=== PATIENT | female | born 1940 | race Asian ===

== ENCOUNTER 2019-08-17 15:38 | Inpatient (IN) | payer MEDICARE, MEDICAID ==
[~2019-08-17] VITALS: Ht 152.4 cm; Wt 45.4 kg
[2019-08-17 15:50] VITALS: BP 105/68
--- NOTE | 2019-08-17 15:50 | NUR ---
ED Nurse Note: Patient came to ED from home, sent by Dr. Young d/t pancytopenia and new onset abdominal pain and weakness. Patient also experiencing color change of her tongue the last 4 months. No diarrhea or bloody stools. Patient AxO x 4, no s/s of acute distress. Blood drawn and sent to lab, IV 20 g started in right AC.
[2019-08-17] MEDS ORDERED: Omnipaque-300 100ml vial INJ ONE (16:15)
[2019-08-17] MEDS ORDERED: HYDROCHLOROTH12.5 MG ORAL (16:25)
[2019-08-17] MEDS ORDERED: CLOPIDOGREL75 MG ORAL (16:25)
[2019-08-17] MEDS ORDERED: TRETINOIN10 MG PO (16:25)
[2019-08-17] MEDS ORDERED: SYNTHROID25 MCG ORAL (16:25)
[2019-08-17] MEDS ORDERED: LOSARTAN POTASS50 MG ORAL (16:25)
[2019-08-17] MEDS ORDERED: ISOSORBIDE MONO30 M1 PO (16:25)
[2019-08-17] MEDS ORDERED: VITAMIN D3 COM1 EACH PO (16:25)
--- NOTE | 2019-08-17 16:39 | Emergency Room Report ---
History of Present Illness General Chief Complaint: Generalized Weakness Source: Patient Present Illness HPI Patient is an 79-year-old female who presented after increased generalized weakness. She had recently been seen by her physician was noted to be pancytopenic. She had been having a discoloration of her tongue for the past 3 to 4 months. Previously had some colonoscopy which showed some abnormal looking polyps.Patient had been sent in by Dr. Young. Patient not been vomiting or having any diarrhea. She denies any bloody stools. Allergies: Coded Allergies: No Known Allergies (Unverified , 08/17/19) Patient History Past Medical History: see triage record Reviewed Nursing Documentation: PMH: Agreed; PSxH: Agreed Nursing Documentation-PMH Past Medical History: No History, Except For Hx Cardiac Problems: Yes - anemia, heart surgery Hx Gastrointestinal Problems: No - colonoscopy Review of Systems All Other Systems: negative except mentioned in HPI Physical Exam Vital Signs Date Time Temp Pulse Resp B/P (MAP) Pulse Ox O2 Delivery O2 Flow Rate FiO2 08/17/19 15:42 98.1 78 17 105/68 (80) 98 Room Air Sp02 EP Interpretation: reviewed, normal General Appearance: normal inspection, well appearing, no apparent distress, alert, GCS 15 Head: atraumatic ENT: normal ENT inspection, hearing grossly normal, normal voice Neck: normal inspection, full range of motion, supple, no bony tend Respiratory: normal inspection, lungs clear, normal breath sounds, no respiratory distress, no retraction, no wheezing Cardiovascular #1: regular rate, rhythm, no edema Gastrointestinal: normal inspection, normal bowel sounds, non tender, soft, no guarding, no hernia Genitourinary: no CVA tenderness Musculoskeletal: normal inspection, back normal, normal range of motion Neurologic: alert, motor strength/tone normal, 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 Differential diagnosis included was not limited to anemia, urinary tract infection, electrolyte abnormality, hypothyroidism, myocardial infarction, myasthenia gravis, dehydration, among others. Because of complexity of patient's case laboratory tests and imaging studies were ordered.CT imaging of the chest abdomen pelvis showed no evidence of acute obstruction or appendicitis. See radiology report for full details. Patient's laboratory testing did show some pancytopenia. Patient was discussed with for inpatient management. Dr. Asa Beal was contacted for hematology consult Labs Test 08/17/19 16:37 White Blood Count 3.6 K/UL (4.8-10.8) Red Blood Count 2.79 M/UL (4.20-5.40) Hemoglobin 9.4 G/DL (12.0-16.0) Hematocrit 27.0 % (37.0-47.0) Mean Corpuscular Volume 97 FL (80-99) Mean Corpuscular Hemoglobin 33.7 PG (27.0-31.0) Mean Corpuscular Hemoglobin Concent 34.7 G/DL (32.0-36.0) Red Cell Distribution Width 13.7 % (11.6-14.8) Platelet Count 71 K/UL (150-450) Mean Platelet Volume 12.9 FL (6.5-10.1) Neutrophils (%) (Auto) % (45.0-75.0) Lymphocytes (%) (Auto) % (20.0-45.0) Monocytes (%) (Auto) % (1.0-10.0) Eosinophils (%) (Auto) % (0.0-3.0) Basophils (%) (Auto) % (0.0-2.0) Prothrombin Time 10.8 SEC (9.30-11.50) Prothromb Time International Ratio 1.0 (0.9-1.1) Activated Partial Thromboplast Time 24 SEC (23-33) Sodium Level 139 MMOL/L (136-145) Potassium Level 4.1 MMOL/L (3.5-5.1) Chloride Level 107 MMOL/L (98-107) Carbon Dioxide Level 27 MMOL/L (21-32) Anion Gap 5 mmol/L (5-15) Blood Urea Nitrogen 14 mg/dL (7-18) Creatinine 1.0 MG/DL (0.55-1.30) Estimat Glomerular Filtration Rate mL/min (>60) Glucose Level 79 MG/DL (74-106) Calcium Level 8.9 MG/DL (8.5-10.1) Total Bilirubin 0.4 MG/DL (0.2-1.0) Aspartate Amino Transf (AST/SGOT) 23 U/L (15-37) Alanine Aminotransferase (ALT/SGPT) 22 U/L (12-78) Alkaline Phosphatase 58 U/L (46-116) Troponin I 0.015 ng/mL (0.000-0.056) Total Protein 7.5 G/DL (6.4-8.2) Albumin 3.4 G/DL (3.4-5.0) Globulin 4.1 g/dL Albumin/Globulin Ratio 0.8 (1.0-2.7) Last Vital Signs Date Time Temp Pulse Resp B/P (MAP) Pulse Ox O2 Delivery O2 Flow Rate FiO2 08/17/19 15:42 98.1 78 17 105/68 (80) 98 Room Air Status: improved Disposition: ADMITTED INPATIENT Condition: Stable Giovanni Llamas MD Aug 17, 2019 16:39
[2019-08-17 17:07] LABS: HEMOGLOBIN 9.4 G/DL (12.0-16.0); MEAN CORPUSCULAR VOLUME 97 FL (80-99); PLATELET COUNT 71 K/UL (150-450); RED BLOOD COUNT 2.79 M/UL (4.20-5.40); RED CELL DISTRIBUTION WIDTH 13.7 % (11.6-14.8); WHITE BLOOD COUNT 3.6 K/UL (4.8-10.8)
[2019-08-17 17:24] LABS: ANION GAP 5 mmol/L (5-15); BLOOD UREA NITROGEN 14 mg/dL (7-18); CALCIUM 8.9 MG/DL (8.5-10.1); CARBON DIOXIDE 27 MMOL/L (21-32); CHLORIDE 107 MMOL/L (98-107); POTASSIUM 4.1 MMOL/L (3.5-5.1); SODIUM 139 MMOL/L (136-145)
[2019-08-17 17:30] LABS: ALANINE AMINOTRANSFERASE 22 U/L (12-78); ALBUMIN 3.4 G/DL (3.4-5.0); ALBUMIN/GLOBULIN RATIO 0.8 (1.0-2.7); ALKALINE PHOSPHATASE 58 U/L (46-116); ASPARTATE AMINO TRANSFERASE 23 U/L (15-37); BILIRUBIN,TOTAL 0.4 MG/DL (0.2-1.0)
[2019-08-17 17:45] VITALS: BP 111/74
--- NOTE | 2019-08-17 18:25 | Diagnostic Imaging Report ---
CLINICAL INDICATION:Abdominal pain and weakness, tongue discoloration TECHNIQUE: No oral contrast, per emergency room physician request IV administration nonionic contrast. Spiral acquisitions obtained through the chest, abdomen, and pelvis. Multiplanar reconstructions were generated. Total dose length product image 61 mGycm. CTDIvol(s) 16 mGy. Radiation dose was minimized using automated exposure control COMPARISON: none FINDINGS Chest: The lungs demonstrate posterior dependent atelectatic changes bilaterally. There is a a 4 mm calcified nodule along the minor fissure on the right. There is also an irregular nodule more medially adjacent to the minor fissure. There is some scarring with bronchiectasis in the inferior right upper lobe. Some linear scarring is also seen in the periphery of the right upper lobe. There there are scattered areas of groundglass opacity in the bilateral upper lungs is a calcified small left upper lobe nodule. No definite soft tissue masses. No infiltrates or effusions. The heart is mildly enlarged. No pericardial effusion. The ascending thoracic aorta is ectatic, not quite aneurysmal, measures 3.8 cm in diameter. No mediastinal or hilar mass or adenopathy. There is one or more calcified granulomatous lymph nodes demonstrated. The thyroid is unremarkable. No axillary or chest wall mass or adenopathy. The bones are unremarkable. Abdomen pelvis: There is colonic diverticulosis. No evidence of diverticulitis. The appendix is normal. No small bowel distention. No free or loculated intraperitoneal gas or fluid is evident. The distal esophagus, stomach, duodenum are unremarkable. The gallbladder contains a gallstone. It is nondistended. The liver, bile ducts, pancreas, spleen, adrenals, right kidney are unremarkable. The left kidney demonstrates subcentimeter low-attenuation lesions which are too small to characterize. No retroperitoneal or mesenteric mass or adenopathy. No pelvic mass or adenopathy. There are small bilateral paraovarian varicosities, left greater than right. Otherwise normal uterus and adnexal structures. The bones demonstrate degenerative spondylosis changes. There is a mild superior endplate compression fracture deformity of the L2 vertebral body. IMPRESSION: Bilateral small apical pulmonary parenchymal groundglass opacities. Suspect postinflammatory in nature but focal areas of inflammation also possible. Consider 3 month follow-up CT scanner for further evaluation No acute abnormality otherwise Cardiomegaly Evidence of old granulomatous disease in the lungs, with bilateral calcified nodules. There are also calcified granulomatous mediastinal nodes. There is also a pleural-based nodule lung the minor fissure which presumably represents an area of scarring. Other areas of postinflammatory change, as described Dependent atelectatic changes Colonic diverticulosis. 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 This can be seen in pelvic congestion syndrome. Correlate with clinical findings L2 vertebral body superior endplate compression fracture deformity. Acuity indeterminate. Consider MRI for better characterize if clinically relevant Other findings as noted, including degenerative spondylosis changes, likely small left renal cysts This agrees with the preliminary interpretation provided overnight by [facility] teleradiology service, with minor variations. The CT scanner at [facility] is accredited by the [employer] and the scans are performed using protocols designed to limit radiation exposure to as low as reasonably achievable to attain images of sufficient resolution adequate for diagnostic evaluation.
--- NOTE | 2019-08-17 19:09 | NUR ---
HAND-OFF: Report given to Lexie WILSON.
--- NOTE | 2019-08-17 20:06 | NUR ---
ED Nurse Note: Patient is resting comfortably with family at bedside. Will continue to monitor.
--- NOTE | 2019-08-17 21:10 | NUR ---
ED Nurse Note: Patient resting comfortably, will continue to monitor.
--- NOTE | 2019-08-17 22:05 | NUR ---
ED Nurse Note: Called and rendered report to Elisa RN
--- NOTE | 2019-08-17 22:30 | NUR ---
NURSE NOTES: RECEIVED REPORT FROM KATIE NEVILLE. PATIENT WAS SAFELY TRANSFERRED TO UNIT VIA HOSPITAL BED. BELONGING LIST WAS REVIEWED AND SIGNED WITH PATIENT. PT DECLINED TO SEND MONEY AND OTHER BELONGINGS TO HOSPITAL'S SAFE. KEPT AT BEDSIDE. PATIENT IS AWAKE, AAOX4, ON ROOM AIR, NO ACUTE DISTRESS NOTED. DENIES PAIN AT THE MOMENT. VSS. IV ON LEFT AC IS INTACT AND PATENT. SKIN IS INTACT. CONTACTED . AWAITING FOR ADMISSION ORDERS. BED IS LOCKED AND LOW, BED ALARMS ACTIVE, SIDE RAILS UP X2 AND CALL LIGHT IS WITHIN REACH. WILL CONTINUE TO MONITOR.
--- NOTE | 2019-08-17 23:00 | NUR ---
NURSE NOTES: RECEIVED ADMISSION ORDERS FROM .
[2019-08-18 04:00] VITALS: BP_SYST 135; BP_SYST 138; BP_DIAS 76; BP_DIAS 78
--- NOTE | 2019-08-18 06:00 | NUR ---
NURSE NOTES: PATIENT WAS SEEN BY DR. PEARCE.
--- NOTE | 2019-08-18 06:14 | Consultation ---
History of Present Illness General Chief Complaint: Generalized Weakness Present Illness Allergies: Coded Allergies: No Known Allergies (Unverified , 08/17/19) Medication History Scheduled Clopidogrel* (Clopidogrel*), 75 MG ORAL DAILY, (Reported) Hydrochlorothiazide* (Hydrochlorothiazide*), 12.5 MG ORAL DAILY, (Reported) Levothyroxine Sodium* (Synthroid*), 25 MCG ORAL DAILY, (Reported) Losartan Potassium* (Losartan Potassium*), 50 MG ORAL DAILY, (Reported) Miscellaneous Medications Isosorbide Mononitrate (Isosorbide Mononitrate Er), 30 MG PO, (Reported) Mv-Mn/Iron/Fa/Herbal Cmplx#190 (Vitamin D3 Complete Caplet), 1 EACH PO, ( Reported) Tretinoin (Tretinoin), 10 MG PO, (Reported) Patient History Healthcare decision maker Resuscitation status Full Code Advanced Directive on File Physical Exam Last 24 Hour Vital Signs Date Time Temp Pulse Resp B/P (MAP) Pulse Ox O2 Delivery O2 Flow Rate FiO2 08/18/19 04:00 97.9 66 16 138/76 (96) 98 08/18/19 01:28 Room Air 08/17/19 22:05 98.2 75 18 111/74 98 Room Air 08/17/19 17:45 98.2 75 18 111/74 98 Room Air 08/17/19 15:50 78 17 Room Air 08/17/19 15:50 98.1 78 17 105/68 98 Room Air 08/17/19 15:42 98.1 78 17 105/68 (80) 98 Room Air Intake and Output 08/17/19 08/18/19 19:00 07:00 Intake Total 0 ml Balance 0 ml Intake Oral 0 ml Laboratory Tests Test 08/17/19 16:37 White Blood Count 3.6 K/UL (4.8-10.8) L Red Blood Count 2.79 M/UL (4.20-5.40) L Hemoglobin 9.4 G/DL (12.0-16.0) L Hematocrit 27.0 % (37.0-47.0) L Mean Corpuscular Volume 97 FL (80-99) Mean Corpuscular Hemoglobin 33.7 PG (27.0-31.0) H Mean Corpuscular Hemoglobin Concent 34.7 G/DL (32.0-36.0) Red Cell Distribution Width 13.7 % (11.6-14.8) Platelet Count 71 K/UL (150-450) L Mean Platelet Volume 12.9 FL (6.5-10.1) H Neutrophils (%) (Auto) % (45.0-75.0) Lymphocytes (%) (Auto) % (20.0-45.0) Monocytes (%) (Auto) % (1.0-10.0) Eosinophils (%) (Auto) % (0.0-3.0) Basophils (%) (Auto) % (0.0-2.0) Differential Total Cells Counted 100 Neutrophils % (Manual) 61 % (45-75) Lymphocytes % (Manual) 35 % (20-45) Monocytes % (Manual) 2 % (1-10) Eosinophils % (Manual) 0 % (0-3) Basophils % (Manual) 0 % (0-2) Band Neutrophils 2 % (0-8) Platelet Estimate Decreased L Platelet Morphology Normal Hypochromasia 1+ Anisocytosis 1+ Prothrombin Time 10.8 SEC (9.30-11.50) Prothromb Time International Ratio 1.0 (0.9-1.1) Activated Partial Thromboplast Time 24 SEC (23-33) Sodium Level 139 MMOL/L (136-145) Potassium Level 4.1 MMOL/L (3.5-5.1) Chloride Level 107 MMOL/L (98-107) Carbon Dioxide Level 27 MMOL/L (21-32) Anion Gap 5 mmol/L (5-15) Blood Urea Nitrogen 14 mg/dL (7-18) Creatinine 1.0 MG/DL (0.55-1.30) Estimat Glomerular Filtration Rate mL/min (>60) Glucose Level 79 MG/DL (74-106) Calcium Level 8.9 MG/DL (8.5-10.1) Total Bilirubin 0.4 MG/DL (0.2-1.0) Aspartate Amino Transf (AST/SGOT) 23 U/L (15-37) Alanine Aminotransferase (ALT/SGPT) 22 U/L (12-78) Alkaline Phosphatase 58 U/L (46-116) Troponin I 0.015 ng/mL (0.000-0.056) Total Protein 7.5 G/DL (6.4-8.2) Albumin 3.4 G/DL (3.4-5.0) Globulin 4.1 g/dL Albumin/Globulin Ratio 0.8 (1.0-2.7) L Height (Feet): 5 Height (Inches): 0.00 Weight (Pounds): 100 Assessment/Plan Assessment/Plan: Hematology Consultation REQ MD: Ryley Sherman Chief Complaint: Generalized Weakness RFC: PAncytopenia DOS: 08/18/2019 HPI Patient is an 79-year-old female who presented after increased generalized weakness -- was at the clinic yesterday and sent in for admission. She had been having a discoloration of her tongue for the past 3 to 4 months. Previously had some colonoscopy which showed some abnormal looking polyps. Patient not been vomiting or having any diarrhea. She denies any bloody stools. Has recently been seen in the clinic again, recent pancytopenia, has never had a bone marrow biopsy. CT C/A/P was nonspecific, has been reviewed, no masses noted. Spoke with patient with a Faroese [employer] Machine Operator, she is Faroese speaking only. Coded Allergies: No Known Allergies (Unverified , 08/17/19) Patient History Past Medical History: see triage record Reviewed Nursing Documentation: PMH: Agreed; PSxH: Agreed Nursing Documentation-PMH Past Medical History: No History, Except For Hx Cardiac Problems: Yes - anemia, heart surgery Hx Gastrointestinal Problems: No - colonoscopy Review of Systems All Other Systems: negative except mentioned in HPI Physical Exam Vitals: reviewed General: no apparent distress, alert, GCS 15 Head: atraumatic HEENT: normal inspection, full range of motion, supple, no bony tend Resp: normal inspection, lungs clear, normal breath sounds Cardiovascular: regular rate, rhythm, no edema GI: normal inspection, normal bowel sounds, non tender, soft, no guarding, no hernia : no CVA tenderness Psych: normal inspection, judgement/insight normal, mood/affect normal Labs: reviewed Imaging: noted Assessment and Recs: # Pancytopenia -- cause yet unknow, no recent administered chemotherapy, will review labs from before, though this is first time she has been here --> cea, hep and hiv ordered to rule out common causes --> meds have been noted --> smear is reviewed and are negative --> CT imaging of the chest abdomen pelvis showed no evidence of acute obstruction or appendicitis. 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 # ASVD. # Cholelithiasis without findings to suggest acute cholecystitis. 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 HELEN Rn and appreciate consultation. Asa Young MD Aug 18, 2019 06:14
--- NOTE | 2019-08-18 07:34 | NUR ---
HAND-OFF: Report given to Jocelyne Santos RN. Patient is in stable condition. Endorsed plan of care.
--- NOTE | 2019-08-18 07:43 | NUR ---
NURSE NOTES: Nurse report given by Elisa, RN. Patient's awake and sitting upright at bedside, eyes open spontaneously. AO x 3, sami speaking only, denies pain , no s/s of distress or SOB. IV saline locked, patent and asymptomatic. Bed low and locked, call light within reach, side rails x 2, bed alarm is armed. Will continue to monitor.
[2019-08-18 08:00] VITALS: BP 148/76
--- NOTE | 2019-08-18 08:51 | NUR ---
NURSE NOTES: Medications were found in patient's belonging bag and witnessed patient was trying to take medications from her medicine bag. Nurse stopped patient and explained that she needs us to dispense the medications for her to take, we don't want to over medicate her on top of whatever she's been taking. Nurse gave pharmacist the medication, receipt is in the chart.
[2019-08-18] MEDS ORDERED: LORazepam Inj 2mg/ml 1ml IV SCH (09:00)
[2019-08-18] MEDS ORDERED: Morphine Sulfate 2mg/ml Inj(IV/IM USE ONLY) IVP SCH (09:00)
[2019-08-18] MEDS ORDERED: Lidocaine 2% MPF 5ml Vial INJ SCH (10:00)
--- NOTE | 2019-08-18 10:40 | NUR ---
NURSE NOTES: Patient received Bone marrow aspirate procedure by Dr. Chavis Patient signed consent. Patient laid on prone position. No complication happened. Minimal bleed. Patient tolerated well. Educated patient to lay on her back for at least 30 minutes. Will continue to monitor.
--- NOTE | 2019-08-18 11:10 | PATHOLOGY BONE BARROW ---
Bone Marrow Aspirate & Biopsy . PROCEDURE: Bone Marrow Aspirate and Biopsy INDICATION: Pancytopenia PROCEDURE CREDIT RISK REVIEW OFFICER: Gala Pineda M.D. CONSENT: Consent was previously obtained from the patient. The risks and benefits were re-explained. The patient agreed to undergo the procedure. A TIMEOUT WAS EXECUTED: Yes PROCEDURE SUMMARY: The patient was laid in the prone position. The left posterior iliac crest was prepped and draped in a sterile fashion. The crest of the posterior iliac was located, and the skin as well as surface of the bone was anesthetized with 2% lidocaine. An aspirating needle was introduced, the bone marrow aspirate was obtained without any difficulty. This was withdrawn the coring needle was advanced into the bone cavity. A bone marrow biopsy was obtained without any complications. ESTIMATED BLOOD LOSS: Negligible REPORTS TO FOLLOW Gala Pineda Aug 18, 2019 11:10
[2019-08-18 12:00] VITALS: BP 148/80
--- NOTE | 2019-08-18 13:13 | NUR ---
CASE MANAGEMENT:INITIAL REVIEW 79 YR OLD FEMALE FROM HOME CC;GENERALIZED WEAKNESS SI;PANCYTOPENIA 98.2 78 16 105/68 98% ON RA WBC 3.6 RBC 2.79 PLT-71 H/H 9.4/27.0 IS;CHEST/ABD/PELVIS CT - Evidence of old granulomatous disease in the lungs, with bilateral calcified nodules. There are also calcified granulomatous mediastinal nodes. There is also a pleural-based nodule lung the minor fissure which presumably represents an area of scarring. ADMITTED TO MED SURG MED SURG STATUS DCP;FROM HOME
[2019-08-18 16:00] VITALS: BP 140/72
--- NOTE | 2019-08-18 16:15 | NUR ---
NURSE NOTES: Patient complains of midchest pain, 6/, no radiation, sharp pain. Contacted Dr. Young regarding the situation. MD ordered EKG stat and [place] 5/325 PO 16hr PRN. Order acknowledged and carried out.
[2019-08-18] MEDS ORDERED: HYDROcodone/Acetamin 5/325 tab ORAL PRN (16:45)
--- NOTE | 2019-08-18 19:28 | NUR ---
HAND-OFF: Report given to Elisa, RN. Plan of care endorsed. Patient's stable.
--- NOTE | 2019-08-18 19:30 | NUR ---
NURSE NOTES: RECEIVED PT FROM ERNESTO BATRES RN. PT IS AWAKE, AAOX4, ON ROOM AIR, NO ACUTE DISTRESS NOTED. IV ON LEFT AC INTACT AND PATENT. REMINDED PATIENT ON STOOL COLLECTION FOR STOOL OB. PATIENT VERBALIZED UNDERSTANDING. BED IS LOCKED AND LOW, BED ALARMS ACTIVE, SIDE RAILS UPX2 AND CALL LIGHT IS WITHIN REACH. WILL CONTINUE TO MONITOR.
[2019-08-18 20:00] VITALS: BP 102/59
--- NOTE | 2019-08-18 20:00 | Consultation ---
DATE OF CONSULTATION: 08/18/2019 INFECTIOUS DISEASES CONSULTATION CONSULTING PHYSICIAN: Chapincito Li M.D. PRIMARY ATTENDING PHYSICIAN: Ryley Fritz M.D. REASON FOR CONSULTATION: Pancytopenia. HISTORY OF PRESENT ILLNESS: The patient is an 79-year-old Turk[place] female admitted yesterday after was sent by primary doctor because of weakness and pancytopenia. No fever. No other systemic problems. She also has pigmentation on tongue and lips. PAST MEDICAL HISTORY: Coronary artery disease, hypothyroidism, history of chronic Lilly, history of liver damage because of [place] herbal medicine, after that the patient had pigmentation to tongue that never resolved. ALLERGIES: No known drug allergies. MEDICATIONS: at home get blood pressure medication. Currently medication was on hold for bone marrow biopsy. SOCIAL HISTORY: Originally from [place], . No history of alcohol, drug abuse, or smoking. REVIEW OF SYSTEMS: No fever. No chills. No coughing. Have shortness of breath on exertion, especially getting up the stairs. No nausea. No vomiting. No problem passing urine. PHYSICAL EXAMINATION: VITAL SIGNS: Temperature 98.1, pulse 71, blood pressure 148/80. GENERAL APPEARANCE: No acute distress. HEAD AND NECK: [place] conjunctiva, has pigmentation of lips and tongue. HEART: Normal rate. LUNGS: Clear. ABDOMEN: Soft and nontender. EXTREMITIES: No edema. NEUROLOGIC: Awake, alert, oriented. She is hard of hearing. LABORATORY AND DIAGNOSTIC DATA: WBC 3.6, hemoglobin 9.4, hematocrit 27, platelets 71. Sodium 139, potassium 4.1, chloride 104, bicarbonate 27, BUN 14, creatinine 1. Troponin is normal. HIV test was negative. CT scan of the abdomen and pelvis showed L2 compression fracture, colon diverticulosis without diverticulitis, small atypical pulmonary parenchymal ground glass appearance. IMPRESSION: 1. Pancytopenia. 2. Tongue pigmentation likely post inflammatory. 3. Colonic diverticulosis without diverticulitis. 4. Hypothyroidism. 5. L2 compression fracture. RECOMMENDATION: Observe off antibiotic. We will follow up hepatitis profile and bone marrow biopsy report. At the end of my exam, I thank Dr. Fritz, for involving me in the care of this patient. Chapincito Li M.D. DR: Naun JOB#: [id number] CC: PHI
[2019-08-19] VITALS (7 sets, daily range): BP systolic 90–129; BP diastolic 51–80
--- NOTE | 2019-08-19 02:00 | Consultation ---
DATE OF CONSULTATION: 08/18/2019 GASTROENTEROLOGY CONSULTATION CONSULTING PHYSICIAN: Live Varghese M.D. CHIEF COMPLAINT: I was asked to see this patient by Dr. Ryley Fritz for evaluation of oral pigmentation and history of colonic polyps. HISTORY OF PRESENT ILLNESS: The patient is an 79-year-old Japanese-speaking woman who was brought into the hospital due to fatigue and weakness. 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 However, given the fatigue, she was brought in to the hospital where inpatient evaluation and treatment has been performed. The patient was noted to have some mild pigmentation, which led to this consultation. She states she has had this discoloration for the last five years. She has not seen a flight crew scheduler or specialist for this. However, about a year ago, she had a colonoscopy and they found four polyps, and one of these was removed showing some suspicious tissue. Subsequently, a few months later, a second colonoscopy was done, and the other three were removed. The first colonoscopy was in October and the second one was a few months later. She also had an endoscopy during the October colonoscopy. She cannot recall any cancers in her life except for some suspicion tissue found on tip of one of the polyps as described above. PAST MEDICAL HISTORY: History of gallstones, history of high blood pressure, thyroid disorder, chest pain disorder. FAMILY HISTORY: Noncontributory. SOCIAL HISTORY: The patient is Japanese-speaking. She does not smoke or drink any alcohol. MEDICATIONS: The patient takes some medications for her thyroid. She is on Isordil. She is on Plavix. REVIEW OF SYSTEMS: Otherwise negative. ALLERGIES: None. PHYSICAL EXAMINATION: GENERAL: A pleasant thin Japanese woman, seen in her room with female nurse at bedside. HEENT: Normocephalic and atraumatic. There is the melanotic pigmentation of the buccal mucosa both behind upper and lower lips as well as the cheeks and also on the tongue. NECK: Supple. CHEST: Clear to auscultation. CARDIOVASCULAR: Regular rate. ABDOMEN: Soft. Good bowel sounds. There is no tenderness. EXTREMITIES: No edema. LABORATORY DATA: Laboratory data were noted. ASSESSMENT: This patient presents with weakness and pancytopenia, which is being addressed separately by her cover machine operator. 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 However, this patient is 79 years old and the lesions just appear now, which is unusual. Also, it would be unlikely to be without cancer for 79 years with this type of syndrome and not already had a juan malignancy. Finally, the lesions in her mouth are somewhat more prominent and typically seen in this disorder. I would refer her either to Ear, Nose, and Throat consultation or Dermatology regarding the skin findings in the mouth. In the meantime, CEA has been ordered, and I will check the patient's stool for occult blood. Respect to the colonoscopy interval screening, I would defer the next colonoscopy to her previous doctors to perform the last one. RECOMMENDATIONS: 1. Consider Ear, Nose, and Throat or Dermatology consultation regarding the oral lesions. 2. We will await CEA results. 3. Hematology followup. 4. Check stool occult blood. Thank you for asking me to participate in the care of this patient. Live Varghese M.D. DR: JERMAINE JOB#: [id number] CC: PHI
[2019-08-19 05:47] LABS: HEMATOCRIT 28.7 % (37.0-47.0); MEAN CORPUSCULAR VOLUME 97 FL (80-99); PLATELET COUNT 58 K/UL (150-450); RED BLOOD COUNT 2.96 M/UL (4.20-5.40); RED CELL DISTRIBUTION WIDTH 13.6 % (11.6-14.8); WHITE BLOOD COUNT 4.7 K/UL (4.8-10.8)
[2019-08-19] MEDS: Levothyroxine 25mcg tab ORAL SCH (05:47)
[2019-08-19 06:43] LABS: ALANINE AMINOTRANSFERASE 19 U/L (12-78); ALBUMIN 3.3 G/DL (3.4-5.0); ALBUMIN/GLOBULIN RATIO 0.8 (1.0-2.7); ALKALINE PHOSPHATASE 61 U/L (46-116); ANION GAP 9 mmol/L (5-15); ASPARTATE AMINO TRANSFERASE 22 U/L (15-37); BILIRUBIN,TOTAL 0.4 MG/DL (0.2-1.0); BLOOD UREA NITROGEN 16 mg/dL (7-18); CALCIUM 8.8 MG/DL (8.5-10.1); CARBON DIOXIDE 26 MMOL/L (21-32); CHLORIDE 105 MMOL/L (98-107); CREATININE 0.9 MG/DL (0.55-1.30); POTASSIUM 4.1 MMOL/L (3.5-5.1); SODIUM 140 MMOL/L (136-145)
--- NOTE | 2019-08-19 07:25 | NUR ---
HAND-OFF: Report given to KATIE Morales. Patient in stable condition. Endorsed plan of care.
--- NOTE | 2019-08-19 07:35 | NUR ---
NURSE NOTES: pt in bed with no sob nor in any form of distress noted. Able to verbalize needs in welsh. denies any pain. no bleeding noted on lower back. will continue to monitor
[2019-08-19] MEDS: Losartan 50mg tab ORAL SCH (08:06)
[2019-08-19] MEDS: hydroCHLOROthiazide 12.5mg TAB ORAL SCH (08:07)
[2019-08-19] MEDS: Imdur 30mg tab ORAL SCH (08:07)
--- NOTE | 2019-08-19 11:31 | History and Physical Report ---
DATE OF ADMISSION: 08/17/2019 HISTORY OF PRESENT ILLNESS: Basically, the patient came in and is admitted for pancytopenia. Came in with weakness. The patient also has been complaining of very much weak with right flank pain and also admitted for pancytopenia. The patient has a history of GI cancer. The patient is also going to get a bone marrow biopsy and CTs. We will go over the results of the CT with the radiologist. The patient basically complains of also discoloration of her tongue for the past three to four months. The patient also has some abnormal looking polyps. The patient denies any rectal bleeding. Denies nausea, vomiting, or diarrhea. Denies shortness of breath. Denies cough. Feels very weak. PAST MEDICAL HISTORY: History of GI cancer, anemia, history of polyps, CAD, hypertension, and hypothyroidism. PAST SURGICAL HISTORY: Heart surgery. ALLERGIES: No known allergies. MEDICATIONS: Hydrochlorothiazide, isosorbide mononitrate, Levoxyl, and losartan. FAMILY HISTORY: Noncontributory. SOCIAL HISTORY: Denies history alcohol or illicit drugs. Denies history of smoking. REVIEW OF SYSTEMS: HEENT: Denies headaches. Denies shortness of breath. Denies cough. CARDIOVASCULAR: Denies chest pain. Denies nausea, vomiting, or diarrhea. GASTROINTESTINAL: Denies nausea, vomiting, diarrhea. EXTREMITIES: . CENTRAL NERVOUS SYSTEM: Denies change in speech pattern. Has generalized weakness. PHYSICAL EXAMINATION: VITAL SIGNS: Temperature 98.2, pulse is 75, and blood pressure is 111/74. HEENT: PERRLA. NECK: Supple. No lymphadenopathy. CHEST: Clear to auscultation. CARDIOVASCULAR: She does have heart murmur, which is chronic. GASTROINTESTINAL: Soft. Positive bowel sounds. No organomegaly. EXTREMITIES: No edema. The patient also has generalized weakness. LABORATORY DATA: WBC of 3.6, hemoglobin 9.4, and platelets of 71,000. Sodium 139, potassium 4.1, BUN of 14, creatinine 1, and glucose of 79. ASSESSMENT AND PLAN: Right flank pain. The patient does have right-sided pancytopenia. The patient has been getting bone marrow biopsy and also we have consulted Dr. Asa Young, Dr. Varghese, and Dr. Chapincito Li to rule out as well as for colonic polyps and rule out any colon mass. is consulted for the GI cancer as well as who has ordered bone marrow biopsy. Ryley Fritz M.D. DR: BRIGID JOB#: [id number] CC:
--- NOTE | 2019-08-19 13:28 | NUR ---
CASE MANAGEMENT:REVIEW SI;PANCYTOPENIA. S/P BONE MARROW ASPIRATION 98.0 75 16 100/53 96% ON RA WBC 4.I RBC 2.96 PLT 58 H/H 05/18.7 IS;IMDUR PO QD COZAAR PO QD SYNTHROID PO QD MED SURG STATUS DCP;FROM HOME
--- NOTE | 2019-08-19 14:45 | Hematology/Onc Progress Note ---
Assessment/Plan Assessment/Plan Assessment and Recs: # Pancytopenia -- cause yet unknow, no recent administered chemotherapy, will review labs from before, though this is first time she has been here --> hep and hiv both negative, cea pending --> meds have been noted --> smear is reviewed and are negative --> CT imaging of the chest abdomen pelvis showed no evidence of acute obstruction or appendicitis. --> 08/19 flow cytometry negative --> bone marrow biopsy 08/18/19 results reviewed/pending # Anemia of chronic disease --> has been snf, chronic --> no e/o hemolysis is seen --> hgb goal >7 # Right flank pain --> r/o uti, on abx as needed # Advanced coronary artery calcifications. # ASVD. # Cholelithiasis without findings to suggest acute cholecystitis. 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 HELEN Rn and appreciate consultation. Subjective Allergies: Coded Allergies: No Known Allergies (Unverified , 08/17/19) Subjective 08/19: awake, no acute distress, flow cytometry negative, hep/hiv negative, no sob Objective Objective Current Medications Medications (Trade) Dose Ordered Sig/Verna Route PRN Reason Start Time Stop Time Status Last Admin Dose Admin Acetaminophen/ Hydrocodone Bitart ([place] 5/325) 1 tab Q6H PRN ORAL For Pain 08/18/19 16:45 08/25/19 16:44 08/18/19 16:52 Clopidogrel Bisulfate (Plavix) 75 mg DAILY ORAL 08/19/19 09:00 09/18/19 08:59 Hydrochlorothiazide (Hydrodiuril) 12.5 mg DAILY ORAL 08/19/19 09:00 09/18/19 08:59 08/19/19 08:07 Isosorbide Mononitrate (Imdur) 30 mg DAILY ORAL 08/19/19 09:00 09/18/19 08:59 08/19/19 08:07 Levothyroxine Sodium (Synthroid) 25 mcg ACBREAKFAST ORAL 08/19/19 06:30 09/18/19 06:29 08/19/19 05:47 Losartan Potassium (Cozaar) 50 mg DAILY ORAL 08/19/19 09:00 09/18/19 08:59 08/19/19 08:06 Last 24 Hour Vital Signs Date Time Temp Pulse Resp B/P (MAP) Pulse Ox O2 Delivery O2 Flow Rate FiO2 08/19/19 12:00 98.0 71 18 100/53 (69) 98 08/19/19 09:00 Room Air 08/19/19 08:07 124/69 08/19/19 08:06 124/69 08/19/19 08:00 97.8 75 18 124/69 (87) 96 08/19/19 04:00 97.7 70 16 129/67 (87) 97 08/19/19 00:00 97.7 77 16 114/67 (83) 98 08/18/19 21:00 Room Air 08/18/19 20:00 97.6 71 16 102/59 (73) 97 08/18/19 17:22 98.1 08/18/19 16:00 98.4 78 17 140/72 (94) 99 08/18/19 12:00 98.1 71 18 148/80 (102) 98 08/18/19 11:09 98.2 08/18/19 08:00 Room Air 08/18/19 08:00 98.2 76 17 148/76 (100) 99 08/18/19 04:00 97.9 66 16 138/76 (96) 98 08/18/19 01:28 Room Air 08/17/19 22:05 98.2 75 18 111/74 98 Room Air 08/17/19 17:45 98.2 75 18 111/74 98 Room Air 08/17/19 15:50 78 17 Room Air 08/17/19 15:50 98.1 78 17 105/68 98 Room Air 08/17/19 15:42 98.1 78 17 105/68 (80) 98 Room Air Intake and Output 08/18/19 08/19/19 19:00 07:00 Intake Total 250 ml Balance 250 ml Intake Oral 250 ml # Voids 3 2 # Bowel Movements 1 Labs Test 08/17/19 16:37 08/18/19 08:30 08/19/19 05:12 White Blood Count 3.6 K/UL (4.8-10.8) 4.7 K/UL (4.8-10.8) Red Blood Count 2.79 M/UL (4.20-5.40) 2.96 M/UL (4.20-5.40) Hemoglobin 9.4 G/DL (12.0-16.0) 10.0 G/DL (12.0-16.0) Hematocrit 27.0 % (37.0-47.0) 28.7 % (37.0-47.0) Mean Corpuscular Volume 97 FL (80-99) 97 FL (80-99) Mean Corpuscular Hemoglobin 33.7 PG (27.0-31.0) 33.7 PG (27.0-31.0) Mean Corpuscular Hemoglobin Concent 34.7 G/DL (32.0-36.0) 34.6 G/DL (32.0-36.0) Red Cell Distribution Width 13.7 % (11.6-14.8) 13.6 % (11.6-14.8) Platelet Count 71 K/UL (150-450) 58 K/UL (150-450) Mean Platelet Volume 12.9 FL (6.5-10.1) 8.5 FL (6.5-10.1) Neutrophils (%) (Auto) % (45.0-75.0) % (45.0-75.0) Lymphocytes (%) (Auto) % (20.0-45.0) % (20.0-45.0) Monocytes (%) (Auto) % (1.0-10.0) % (1.0-10.0) Eosinophils (%) (Auto) % (0.0-3.0) % (0.0-3.0) Basophils (%) (Auto) % (0.0-2.0) % (0.0-2.0) Differential Total Cells Counted 100 100 Neutrophils % (Manual) 61 % (45-75) 69 % (45-75) Lymphocytes % (Manual) 35 % (20-45) 28 % (20-45) Monocytes % (Manual) 2 % (1-10) 3 % (1-10) Eosinophils % (Manual) 0 % (0-3) 0 % (0-3) Basophils % (Manual) 0 % (0-2) 0 % (0-2) Band Neutrophils 2 % (0-8) 0 % (0-8) Platelet Estimate Decreased Decreased Platelet Morphology Normal Normal Hypochromasia 1+ 1+ Anisocytosis 1+ 1+ Prothrombin Time 10.8 SEC (9.30-11.50) Prothromb Time International Ratio 1.0 (0.9-1.1) Activated Partial Thromboplast Time 24 SEC (23-33) Sodium Level 139 MMOL/L (136-145) 140 MMOL/L (136-145) Potassium Level 4.1 MMOL/L (3.5-5.1) 4.1 MMOL/L (3.5-5.1) Chloride Level 107 MMOL/L (98-107) 105 MMOL/L (98-107) Carbon Dioxide Level 27 MMOL/L (21-32) 26 MMOL/L (21-32) Anion Gap 5 mmol/L (5-15) 9 mmol/L (5-15) Blood Urea Nitrogen 14 mg/dL (7-18) 16 mg/dL (7-18) Creatinine 1.0 MG/DL (0.55-1.30) 0.9 MG/DL (0.55-1.30) Estimat Glomerular Filtration Rate mL/min (>60) mL/min (>60) Glucose Level 79 MG/DL (74-106) 97 MG/DL (74-106) Calcium Level 8.9 MG/DL (8.5-10.1) 8.8 MG/DL (8.5-10.1) Total Bilirubin 0.4 MG/DL (0.2-1.0) 0.4 MG/DL (0.2-1.0) Aspartate Amino Transf (AST/SGOT) 23 U/L (15-37) 22 U/L (15-37) Alanine Aminotransferase (ALT/SGPT) 22 U/L (12-78) 19 U/L (12-78) Alkaline Phosphatase 58 U/L (46-116) 61 U/L (46-116) Troponin I 0.015 ng/mL (0.000-0.056) Total Protein 7.5 G/DL (6.4-8.2) 7.5 G/DL (6.4-8.2) Albumin 3.4 G/DL (3.4-5.0) 3.3 G/DL (3.4-5.0) Globulin 4.1 g/dL 4.2 g/dL Albumin/Globulin Ratio 0.8 (1.0-2.7) 0.8 (1.0-2.7) Carcinoembryonic Antigen 2.3 ng/mL (0.0-4.7) Hepatitis A IgM Antibody Negative (Negative) Hepatitis B Surface Antigen Negative (Negative) Hepatitis B Core IgM Antibody Negative (Negative) Hepatitis C Antibody <0.1 s/co ratio HIV (1&2) Antibody Rapid Negative (NEGATIVE) Ovalocytes Occasional Height (Feet): 5 Height (Inches): 0.00 Weight (Pounds): 100 Objective Physical Exam Vitals: reviewed General: no apparent distress, alert, GCS 15 Head: atraumatic HEENT: normal inspection, full range of motion, supple, no bony tend Resp: normal inspection, lungs clear, normal breath sounds Cardiovascular: regular rate, rhythm, no edema GI: normal inspection, normal bowel sounds, non tender, soft, no guarding, no hernia : no CVA tenderness Psych: normal inspection, judgement/insight normal, mood/affect normal Asa Young MD Aug 19, 2019 14:45
--- NOTE | 2019-08-19 15:15 | NUR ---
NURSE NOTES: OB stool collected and sent to the lab
--- NOTE | 2019-08-19 19:16 | NUR ---
HAND-OFF: Report given to KATIE Branch.
--- NOTE | 2019-08-19 19:38 | NUR ---
NURSE NOTES: Patient is in bed and asleep at this time. On room air with no signs of distress or SOB. IV intact and patent. Bed locked and in lowest position. Call light in reach. Will continue to monitor.
--- NOTE | 2019-08-19 19:42 | General Progress Note ---
Assessment/Plan Assessment/Plan: Assessment - Pancytopenia - blue discoloration in mouth - h/o colon polyps Recommendations - push po - Heme Onc f/u - follow labs - consider ENT eval Subjective Allergies: Coded Allergies: No Known Allergies (Unverified , 08/17/19) Subjective Above noted d/w patient via career resource specialist had c/o CP earlier - evaluated by PMD no abd complaints Objective Last 24 Hour Vital Signs Date Time Temp Pulse Resp B/P (MAP) Pulse Ox O2 Delivery O2 Flow Rate FiO2 08/19/19 16:00 98.4 72 18 90/51 (64) 98 08/19/19 12:00 98.0 71 18 100/53 (69) 98 08/19/19 09:00 Room Air 08/19/19 08:07 124/69 08/19/19 08:06 124/69 08/19/19 08:00 97.8 75 18 124/69 (87) 96 08/19/19 04:00 97.7 70 16 129/67 (87) 97 08/19/19 00:00 97.7 77 16 114/67 (83) 98 08/18/19 21:00 Room Air 08/18/19 20:00 97.6 71 16 102/59 (73) 97 Intake and Output 08/18/19 08/19/19 19:00 07:00 Intake Total 250 ml Balance 250 ml Intake Oral 250 ml # Voids 3 2 # Bowel Movements 1 Laboratory Tests 08/19/19 05:12: White Blood Count 4.7L, Red Blood Count 2.96L, Hemoglobin 10.0L, Hematocrit 28.7L, Mean Corpuscular Volume 97, Mean Corpuscular Hemoglobin 33.7H, Mean Corpuscular Hemoglobin Concent 34.6, Red Cell Distribution Width 13.6, Platelet Count 58L, Mean Platelet Volume 8.5, Neutrophils (%) (Auto) , Lymphocytes (%) ( Auto) , Monocytes (%) (Auto) , Eosinophils (%) (Auto) , Basophils (%) (Auto) , Differential Total Cells Counted 100, Neutrophils % (Manual) 69, Lymphocytes % ( Manual) 28, Monocytes % (Manual) 3, Eosinophils % (Manual) 0, Basophils % ( Manual) 0, Band Neutrophils 0, Platelet Estimate DecreasedL, Platelet Morphology Normal, Hypochromasia 1+, Anisocytosis 1+, Ovalocytes Occasional, Sodium Level 140, Potassium Level 4.1, Chloride Level 105, Carbon Dioxide Level 26, Anion Gap 9, Blood Urea Nitrogen 16, Creatinine 0.9, Estimat Glomerular Filtration Rate , Glucose Level 97, Calcium Level 8.8, Total Bilirubin 0.4, Aspartate Amino Transf (AST/SGOT) 22, Alanine Aminotransferase (ALT/SGPT) 19, Alkaline Phosphatase 61, Total Protein 7.5, Albumin 3.3L, Globulin 4.2, Albumin/ Globulin Ratio 0.8L 08/19/19 17:00: Stool Occult Blood [Pending] Height (Feet): 5 Height (Inches): 0.00 Weight (Pounds): 100 Objective WDWN NCAT, (+) blue patches on buccal and tongue mucosa supple CTA RR abd soft NT ND no edema Live Varghese MD Aug 19, 2019 19:42
--- NOTE | 2019-08-19 21:22 | General Progress Note ---
Assessment/Plan Problem List: (1) Pancytopenia ICD Codes: D61.818 - Other pancytopenia SNOMED: [id number] Status: progressing Assessment/Plan: pancytopenia consulted heme/onc afebrile reviewed chart and labs Subjective ROS Limited/Unobtainable: Yes Allergies: Coded Allergies: No Known Allergies (Unverified , 08/17/19) Objective Last 24 Hour Vital Signs Date Time Temp Pulse Resp B/P (MAP) Pulse Ox O2 Delivery O2 Flow Rate FiO2 08/19/19 20:07 Room Air 08/19/19 20:00 98.1 70 18 92/51 (65) 98 08/19/19 16:00 98.4 72 18 90/51 (64) 98 08/19/19 12:00 98.0 71 18 100/53 (69) 98 08/19/19 09:00 Room Air 08/19/19 08:07 124/69 08/19/19 08:06 124/69 08/19/19 08:00 97.8 75 18 124/69 (87) 96 08/19/19 04:00 97.7 70 16 129/67 (87) 97 08/19/19 00:00 97.7 77 16 114/67 (83) 98 Intake and Output 08/18/19 08/19/19 19:00 07:00 Intake Total 250 ml Balance 250 ml Intake Oral 250 ml # Voids 3 2 # Bowel Movements 1 Laboratory Tests 08/19/19 05:12: White Blood Count 4.7L, Red Blood Count 2.96L, Hemoglobin 10.0L, Hematocrit 28.7L, Mean Corpuscular Volume 97, Mean Corpuscular Hemoglobin 33.7H, Mean Corpuscular Hemoglobin Concent 34.6, Red Cell Distribution Width 13.6, Platelet Count 58L, Mean Platelet Volume 8.5, Neutrophils (%) (Auto) , Lymphocytes (%) ( Auto) , Monocytes (%) (Auto) , Eosinophils (%) (Auto) , Basophils (%) (Auto) , Differential Total Cells Counted 100, Neutrophils % (Manual) 69, Lymphocytes % ( Manual) 28, Monocytes % (Manual) 3, Eosinophils % (Manual) 0, Basophils % ( Manual) 0, Band Neutrophils 0, Platelet Estimate DecreasedL, Platelet Morphology Normal, Hypochromasia 1+, Anisocytosis 1+, Ovalocytes Occasional, Sodium Level 140, Potassium Level 4.1, Chloride Level 105, Carbon Dioxide Level 26, Anion Gap 9, Blood Urea Nitrogen 16, Creatinine 0.9, Estimat Glomerular Filtration Rate , Glucose Level 97, Calcium Level 8.8, Total Bilirubin 0.4, Aspartate Amino Transf (AST/SGOT) 22, Alanine Aminotransferase (ALT/SGPT) 19, Alkaline Phosphatase 61, Total Protein 7.5, Albumin 3.3L, Globulin 4.2, Albumin/ Globulin Ratio 0.8L 08/19/19 17:00: Stool Occult Blood [Pending] Height (Feet): 5 Height (Inches): 0.00 Weight (Pounds): 100 Cardiovascular: normal rate Respiratory/Chest: lungs clear Abdomen: non tender Ryley Fritz MD Aug 19, 2019 21:22
[2019-08-20 04:00] VITALS: BP 137/76
[2019-08-20] MEDS: Levothyroxine 25mcg tab ORAL SCH (06:31)
--- NOTE | 2019-08-20 07:20 | NUR ---
HAND-OFF: Report given to KATIE Morales.
--- NOTE | 2019-08-20 07:55 | NUR ---
NURSE NOTES: pt in bed with no sob nor in any form of distress noted. Breathing regular and unlabored. denies pain at this time. will continue to monitor
[2019-08-20 08:00] VITALS: BP 151/78
[2019-08-20] MEDS: Losartan 50mg tab ORAL SCH (08:22)
[2019-08-20] MEDS: hydroCHLOROthiazide 12.5mg TAB ORAL SCH (08:22)
[2019-08-20] MEDS: Imdur 30mg tab ORAL SCH (08:22)
--- NOTE | 2019-08-20 10:38 | Infectious Diseases Prog Note ---
Assessment/Plan Assessment/Plan IMPRESSION: 1. Pancytopenia. 2. Tongue pigmentation likely post inflammatory. 3. Colonic diverticulosis without diverticulitis. 4. Hypothyroidism. 5. L2 compression fracture. RECOMMENDATION: Observe off antibiotic. Negative: hepatitis profile and bone marrow biopsy report. Subjective ROS Limited/Unobtainable: Yes Constitutional: Denies: fever Allergies: Coded Allergies: No Known Allergies (Unverified , 08/17/19) Objective Vital Signs Last 24 Hour Vital Signs Date Time Temp Pulse Resp B/P (MAP) Pulse Ox O2 Delivery O2 Flow Rate FiO2 08/20/19 08:57 Room Air 08/20/19 08:22 151/78 08/20/19 08:22 151/78 08/20/19 08:00 98.5 72 18 151/78 (102) 97 08/20/19 04:00 97.8 65 18 137/76 (96) 97 08/19/19 23:57 98.6 90 18 113/80 (91) 94 08/19/19 20:07 Room Air 08/19/19 20:00 98.1 70 18 92/51 (65) 98 08/19/19 16:00 98.4 72 18 90/51 (64) 98 08/19/19 12:00 98.0 71 18 100/53 (69) 98 Height (Feet): 5 Height (Inches): 0.00 Weight (Pounds): 100 General Appearance: no acute distress HEENT: mucous membranes moist Respiratory/Chest: lungs clear Cardiovascular: normal rate Abdomen: soft, non tender Extremities: no edema Neurologic/Psychiatric: other - sleeping Laboratory Tests Test 08/19/19 17:00 Stool Occult Blood Pending Current Medications Medications (Trade) Dose Ordered Sig/Verna Route PRN Reason Start Time Stop Time Status Last Admin Dose Admin Acetaminophen/ Hydrocodone Bitart ([place] 5/325) 1 tab Q6H PRN ORAL For Pain 08/18/19 16:45 08/25/19 16:44 08/18/19 16:52 Clopidogrel Bisulfate (Plavix) 75 mg DAILY ORAL 08/19/19 09:00 09/18/19 08:59 Hydrochlorothiazide (Hydrodiuril) 12.5 mg DAILY ORAL 08/19/19 09:00 09/18/19 08:59 08/20/19 08:22 Isosorbide Mononitrate (Imdur) 30 mg DAILY ORAL 08/19/19 09:00 09/18/19 08:59 08/20/19 08:22 Levothyroxine Sodium (Synthroid) 25 mcg ACBREAKFAST ORAL 08/19/19 06:30 09/18/19 06:29 08/20/19 06:31 Losartan Potassium (Cozaar) 50 mg DAILY ORAL 08/19/19 09:00 09/18/19 08:59 08/20/19 08:22 Chapincito Li MD Aug 20, 2019 10:38
[2019-08-20 12:00] VITALS: BP 112/61
--- NOTE | 2019-08-20 13:22 | NUR ---
CASE MANAGEMENT:REVIEW SI;PANCYTOPENIA 98.6 90 18 151/78 94% ON RA LABS- NONE IS;IMDUR PO QD COZAAR PO QD SYNTHROID PO QAM NORCO PO Q6 HRS PRN MED SURG STATUS PLAN;OBSERVE OFF ABX DCP;FROM HOME
--- NOTE | 2019-08-20 15:52 | Hematology/Onc Progress Note ---
Assessment/Plan Assessment/Plan Assessment and Recs: # Pancytopenia -- cause yet unknow, no recent administered chemotherapy, will review labs from before, though this is first time she has been here --> hep and hiv both negative, cea pending --> meds have been noted --> smear is reviewed and are negative --> CT imaging of the chest abdomen pelvis showed no evidence of acute obstruction or appendicitis. --> 08/19 flow cytometry negative --> bone marrow biopsy 08/18/19 results reviewed/pending # Anemia of chronic disease --> has been penitentiary, chronic --> no e/o hemolysis is seen --> hgb goal >7 --> stool ob negative # Right flank pain --> r/o uti, on abx as needed # Advanced coronary artery calcifications. # ASVD. # Cholelithiasis without findings to suggest acute cholecystitis. 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 HELEN Rn and appreciate consultation. Subjective Allergies: Coded Allergies: No Known Allergies (Unverified , 08/17/19) Subjective 08/19: awake, no acute distress, flow cytometry negative, hep/hiv negative, no sob 08/20: no overnight events, off abx, stool ob negative, room air Objective Objective Current Medications Medications (Trade) Dose Ordered Sig/Verna Route PRN Reason Start Time Stop Time Status Last Admin Dose Admin Acetaminophen/ Hydrocodone Bitart ([place] 5/325) 1 tab Q6H PRN ORAL For Pain 08/18/19 16:45 08/25/19 16:44 08/18/19 16:52 Clopidogrel Bisulfate (Plavix) 75 mg DAILY ORAL 08/19/19 09:00 09/18/19 08:59 Hydrochlorothiazide (Hydrodiuril) 12.5 mg DAILY ORAL 08/19/19 09:00 09/18/19 08:59 08/20/19 08:22 Isosorbide Mononitrate (Imdur) 30 mg DAILY ORAL 08/19/19 09:00 09/18/19 08:59 08/20/19 08:22 Levothyroxine Sodium (Synthroid) 25 mcg ACBREAKFAST ORAL 08/19/19 06:30 09/18/19 06:29 08/20/19 06:31 Losartan Potassium (Cozaar) 50 mg DAILY ORAL 08/19/19 09:00 09/18/19 08:59 08/20/19 08:22 Last 24 Hour Vital Signs Date Time Temp Pulse Resp B/P (MAP) Pulse Ox O2 Delivery O2 Flow Rate FiO2 08/20/19 12:00 98.6 74 18 112/61 (78) 98 08/20/19 08:57 Room Air 08/20/19 08:22 151/78 08/20/19 08:22 151/78 08/20/19 08:00 98.5 72 18 151/78 (102) 97 08/20/19 04:00 97.8 65 18 137/76 (96) 97 08/19/19 23:57 98.6 90 18 113/80 (91) 94 08/19/19 20:07 Room Air 08/19/19 20:00 98.1 70 18 92/51 (65) 98 08/19/19 16:00 98.4 72 18 90/51 (64) 98 08/19/19 12:00 98.0 71 18 100/53 (69) 98 08/19/19 09:00 Room Air 08/19/19 08:07 124/69 08/19/19 08:06 124/69 08/19/19 08:00 97.8 75 18 124/69 (87) 96 08/19/19 04:00 97.7 70 16 129/67 (87) 97 08/19/19 00:00 97.7 77 16 114/67 (83) 98 08/18/19 21:00 Room Air 08/18/19 20:00 97.6 71 16 102/59 (73) 97 08/18/19 17:22 98.1 08/18/19 16:00 98.4 78 17 140/72 (94) 99 Intake and Output 08/19/19 08/20/19 19:00 07:00 Intake Total 600 ml Balance 600 ml Other 600 ml # Voids 1 Labs Test 08/17/19 16:37 08/18/19 08:30 08/19/19 05:12 08/19/19 17:00 White Blood Count 3.6 K/UL (4.8-10.8) 4.7 K/UL (4.8-10.8) Red Blood Count 2.79 M/UL (4.20-5.40) 2.96 M/UL (4.20-5.40) Hemoglobin 9.4 G/DL (12.0-16.0) 10.0 G/DL (12.0-16.0) Hematocrit 27.0 % (37.0-47.0) 28.7 % (37.0-47.0) Mean Corpuscular Volume 97 FL (80-99) 97 FL (80-99) Mean Corpuscular Hemoglobin 33.7 PG (27.0-31.0) 33.7 PG (27.0-31.0) Mean Corpuscular Hemoglobin Concent 34.7 G/DL (32.0-36.0) 34.6 G/DL (32.0-36.0) Red Cell Distribution Width 13.7 % (11.6-14.8) 13.6 % (11.6-14.8) Platelet Count 71 K/UL (150-450) 58 K/UL (150-450) Mean Platelet Volume 12.9 FL (6.5-10.1) 8.5 FL (6.5-10.1) Neutrophils (%) (Auto) % (45.0-75.0) % (45.0-75.0) Lymphocytes (%) (Auto) % (20.0-45.0) % (20.0-45.0) Monocytes (%) (Auto) % (1.0-10.0) % (1.0-10.0) Eosinophils (%) (Auto) % (0.0-3.0) % (0.0-3.0) Basophils (%) (Auto) % (0.0-2.0) % (0.0-2.0) Differential Total Cells Counted 100 100 Neutrophils % (Manual) 61 % (45-75) 69 % (45-75) Lymphocytes % (Manual) 35 % (20-45) 28 % (20-45) Monocytes % (Manual) 2 % (1-10) 3 % (1-10) Eosinophils % (Manual) 0 % (0-3) 0 % (0-3) Basophils % (Manual) 0 % (0-2) 0 % (0-2) Band Neutrophils 2 % (0-8) 0 % (0-8) Platelet Estimate Decreased Decreased Platelet Morphology Normal Normal Hypochromasia 1+ 1+ Anisocytosis 1+ 1+ Prothrombin Time 10.8 SEC (9.30-11.50) Prothromb Time International Ratio 1.0 (0.9-1.1) Activated Partial Thromboplast Time 24 SEC (23-33) Sodium Level 139 MMOL/L (136-145) 140 MMOL/L (136-145) Potassium Level 4.1 MMOL/L (3.5-5.1) 4.1 MMOL/L (3.5-5.1) Chloride Level 107 MMOL/L (98-107) 105 MMOL/L (98-107) Carbon Dioxide Level 27 MMOL/L (21-32) 26 MMOL/L (21-32) Anion Gap 5 mmol/L (5-15) 9 mmol/L (5-15) Blood Urea Nitrogen 14 mg/dL (7-18) 16 mg/dL (7-18) Creatinine 1.0 MG/DL (0.55-1.30) 0.9 MG/DL (0.55-1.30) Estimat Glomerular Filtration Rate mL/min (>60) mL/min (>60) Glucose Level 79 MG/DL (74-106) 97 MG/DL (74-106) Calcium Level 8.9 MG/DL (8.5-10.1) 8.8 MG/DL (8.5-10.1) Total Bilirubin 0.4 MG/DL (0.2-1.0) 0.4 MG/DL (0.2-1.0) Aspartate Amino Transf (AST/SGOT) 23 U/L (15-37) 22 U/L (15-37) Alanine Aminotransferase (ALT/SGPT) 22 U/L (12-78) 19 U/L (12-78) Alkaline Phosphatase 58 U/L (46-116) 61 U/L (46-116) Troponin I 0.015 ng/mL (0.000-0.056) Total Protein 7.5 G/DL (6.4-8.2) 7.5 G/DL (6.4-8.2) Albumin 3.4 G/DL (3.4-5.0) 3.3 G/DL (3.4-5.0) Globulin 4.1 g/dL 4.2 g/dL Albumin/Globulin Ratio 0.8 (1.0-2.7) 0.8 (1.0-2.7) Carcinoembryonic Antigen 2.3 ng/mL (0.0-4.7) Hepatitis A IgM Antibody Negative (Negative) Hepatitis B Surface Antigen Negative (Negative) Hepatitis B Core IgM Antibody Negative (Negative) Hepatitis C Antibody <0.1 s/co ratio HIV (1&2) Antibody Rapid Negative (NEGATIVE) Ovalocytes Occasional Stool Occult Blood Negative (NEGATIVE) Height (Feet): 5 Height (Inches): 0.00 Weight (Pounds): 100 Objective Physical Exam Vitals: reviewed General: no apparent distress, alert, GCS 15 Head: atraumatic HEENT: normal inspection, full range of motion, supple, no bony tend Resp: normal inspection, lungs clear, normal breath sounds Cardiovascular: regular rate, rhythm, no edema GI: normal inspection, normal bowel sounds, non tender, soft, no guarding, no hernia : no CVA tenderness Psych: normal inspection, judgement/insight normal, mood/affect normal Asa Young MD Aug 20, 2019 15:52
[2019-08-20 16:00] VITALS: BP 118/69
--- NOTE | 2019-08-20 19:24 | NUR ---
HAND-OFF: Report given to KATIE menchaca.
--- NOTE | 2019-08-20 19:30 | NUR ---
NURSE NOTES: Received patient in no apparent distress. A&OX4. IV site patent and intact. Bed in lowest position. Call light within reach. Will continue to monitor.
[2019-08-20 20:00] VITALS: BP 114/60
--- NOTE | 2019-08-20 21:28 | General Progress Note ---
Assessment/Plan Status: progressing Assessment/Plan: Assessment - Pancytopenia - blue discoloration in mouth - h/o colon polyps - Anemia, OB (-) Recommendations - push po - Heme Onc f/u - follow labs - consider ENT eval Subjective Allergies: Coded Allergies: No Known Allergies (Unverified , 08/17/19) Subjective Above noted (+) BM --> OB (-) Objective Last 24 Hour Vital Signs Date Time Temp Pulse Resp B/P (MAP) Pulse Ox O2 Delivery O2 Flow Rate FiO2 08/20/19 20:08 Room Air 08/20/19 20:00 97.6 64 18 114/60 (78) 99 08/20/19 16:00 97.9 78 18 118/69 (85) 98 08/20/19 12:00 98.6 74 18 112/61 (78) 98 08/20/19 08:57 Room Air 08/20/19 08:22 151/78 08/20/19 08:22 151/78 08/20/19 08:00 98.5 72 18 151/78 (102) 97 08/20/19 04:00 97.8 65 18 137/76 (96) 97 08/19/19 23:57 98.6 90 18 113/80 (91) 94 Intake and Output 08/19/19 08/20/19 19:00 07:00 Intake Total 600 ml Balance 600 ml Other 600 ml # Voids 1 Height (Feet): 5 Height (Inches): 0.00 Weight (Pounds): 100 Objective WDWN NCAT, (+) blue patches on buccal and tongue mucosa supple CTA RR abd soft NT ND no edema Live Varghese MD Aug 20, 2019 21:28
--- NOTE | 2019-08-20 21:41 | General Progress Note ---
Assessment/Plan Problem List: (1) Pancytopenia ICD Codes: D61.818 - Other pancytopenia SNOMED: [id number] Status: progressing Assessment/Plan: pancytopenia no bleeding bone marrow biopsy to find etilogy Subjective ROS Limited/Unobtainable: Yes Allergies: Coded Allergies: No Known Allergies (Unverified , 08/17/19) Objective Last 24 Hour Vital Signs Date Time Temp Pulse Resp B/P (MAP) Pulse Ox O2 Delivery O2 Flow Rate FiO2 08/20/19 20:08 Room Air 08/20/19 20:00 97.6 64 18 114/60 (78) 99 08/20/19 16:00 97.9 78 18 118/69 (85) 98 08/20/19 12:00 98.6 74 18 112/61 (78) 98 08/20/19 08:57 Room Air 08/20/19 08:22 151/78 08/20/19 08:22 151/78 08/20/19 08:00 98.5 72 18 151/78 (102) 97 08/20/19 04:00 97.8 65 18 137/76 (96) 97 08/19/19 23:57 98.6 90 18 113/80 (91) 94 Intake and Output 08/19/19 08/20/19 19:00 07:00 Intake Total 600 ml Balance 600 ml Other 600 ml # Voids 1 Height (Feet): 5 Height (Inches): 0.00 Weight (Pounds): 100 General Appearance: confused Cardiovascular: normal rate Respiratory/Chest: lungs clear Abdomen: soft Ryley Fritz MD Aug 20, 2019 21:41
[2019-08-21] VITALS: BP 117/67
[2019-08-21 04:00] VITALS: BP 115/63
[2019-08-21] MEDS: Levothyroxine 25mcg tab ORAL SCH (05:47)
--- NOTE | 2019-08-21 06:24 | Hematology/Onc Progress Note ---
Assessment/Plan Assessment/Plan Assessment and Recs: # Pancytopenia -- cause yet unknow, no recent administered chemotherapy, will review labs from before, though this is first time she has been here --> hep and hiv both negative, cea pending --> meds have been noted --> smear is reviewed and are negative --> CT imaging of the chest abdomen pelvis showed no evidence of acute obstruction or appendicitis. --> 08/19 flow cytometry negative of bone marrow bx --> bone marrow biopsy 08/18/19 results reviewed/pending # Anemia of chronic disease --> has been [employer], chronic --> no e/o hemolysis is seen --> hgb goal >7 --> stool ob negative # Right flank pain --> r/o uti, on abx as needed # Advanced coronary artery calcifications. # ASVD. # Cholelithiasis without findings to suggest acute cholecystitis. 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 HELEN Rn and appreciate consultation. Subjective Cardiovascular: Denies: no symptoms, chest pain, edema, irregular heart rate, lightheadedness, palpitations, syncope, other Respiratory: Denies: no symptoms, cough, shortness of breath, SOB with excertion, SOB at rest, sputum, wheezing, other Gastrointestinal/Abdominal: Denies: no symptoms, abdomen distended, abdominal pain, black stools, tarry stools, blood in stool, constipated, diarrhea, difficulty swallowing, nausea, poor appetite, poor fluid intake, rectal bleeding , vomiting, other Genitourinary: Denies: no symptoms, burning, discharge, frequency, flank pain, hematuria, incontinence, pain, urgency, other Neurologic/Psychiatric: Denies: no symptoms, anxiety, depressed, emotional problems, headache, numbness, paresthesia, pre-existing deficit, seizure, tingling, tremors, weakness, other Endocrine: Denies: no symptoms, excessive sweating, flushing, intolerance to cold, intolerance to heat, increased hunger, increased thirst, increased urine, unexplained weight gain, unexplained weight loss, other Allergies: Coded Allergies: No Known Allergies (Unverified , 08/17/19) Subjective 08/19: awake, no acute distress, flow cytometry negative, hep/hiv negative, no sob 08/20: no overnight events, off abx, stool ob negative, room air 08/21: no major changed, reviewed labs with rn, renetta bone marrow neg Objective Objective Current Medications Medications (Trade) Dose Ordered Sig/Verna Route PRN Reason Start Time Stop Time Status Last Admin Dose Admin Acetaminophen/ Hydrocodone Bitart ([place] 5/325) 1 tab Q6H PRN ORAL For Pain 08/18/19 16:45 08/25/19 16:44 08/18/19 16:52 Clopidogrel Bisulfate (Plavix) 75 mg DAILY ORAL 08/19/19 09:00 09/18/19 08:59 Hydrochlorothiazide (Hydrodiuril) 12.5 mg DAILY ORAL 08/19/19 09:00 09/18/19 08:59 08/20/19 08:22 Isosorbide Mononitrate (Imdur) 30 mg DAILY ORAL 08/19/19 09:00 09/18/19 08:59 08/20/19 08:22 Levothyroxine Sodium (Synthroid) 25 mcg ACBREAKFAST ORAL 08/19/19 06:30 09/18/19 06:29 08/21/19 05:47 Losartan Potassium (Cozaar) 50 mg DAILY ORAL 08/19/19 09:00 09/18/19 08:59 08/20/19 08:22 Last 24 Hour Vital Signs Date Time Temp Pulse Resp B/P (MAP) Pulse Ox O2 Delivery O2 Flow Rate FiO2 08/21/19 04:00 97.9 69 18 115/63 (80) 97 08/21/19 00:00 97.7 66 18 117/67 (84) 98 08/20/19 20:08 Room Air 08/20/19 20:00 97.6 64 18 114/60 (78) 99 08/20/19 16:00 97.9 78 18 118/69 (85) 98 08/20/19 12:00 98.6 74 18 112/61 (78) 98 08/20/19 08:57 Room Air 08/20/19 08:22 151/78 08/20/19 08:22 151/78 08/20/19 08:00 98.5 72 18 151/78 (102) 97 08/20/19 04:00 97.8 65 18 137/76 (96) 97 08/19/19 23:57 98.6 90 18 113/80 (91) 94 08/19/19 20:07 Room Air 08/19/19 20:00 98.1 70 18 92/51 (65) 98 08/19/19 16:00 98.4 72 18 90/51 (64) 98 08/19/19 12:00 98.0 71 18 100/53 (69) 98 08/19/19 09:00 Room Air 08/19/19 08:07 124/69 08/19/19 08:06 124/69 08/19/19 08:00 97.8 75 18 124/69 (87) 96 Intake and Output 08/20/19 08/21/19 19:00 07:00 Intake Total 800 ml Balance 800 ml Intake Oral 800 ml # Voids 5 Labs Test 08/18/19 08:30 08/19/19 05:12 08/19/19 17:00 Carcinoembryonic Antigen 2.3 ng/mL (0.0-4.7) Hepatitis A IgM Antibody Negative (Negative) Hepatitis B Surface Antigen Negative (Negative) Hepatitis B Core IgM Antibody Negative (Negative) Hepatitis C Antibody <0.1 s/co ratio HIV (1&2) Antibody Rapid Negative (NEGATIVE) White Blood Count 4.7 K/UL (4.8-10.8) Red Blood Count 2.96 M/UL (4.20-5.40) Hemoglobin 10.0 G/DL (12.0-16.0) Hematocrit 28.7 % (37.0-47.0) Mean Corpuscular Volume 97 FL (80-99) Mean Corpuscular Hemoglobin 33.7 PG (27.0-31.0) Mean Corpuscular Hemoglobin Concent 34.6 G/DL (32.0-36.0) Red Cell Distribution Width 13.6 % (11.6-14.8) Platelet Count 58 K/UL (150-450) Mean Platelet Volume 8.5 FL (6.5-10.1) Neutrophils (%) (Auto) % (45.0-75.0) Lymphocytes (%) (Auto) % (20.0-45.0) Monocytes (%) (Auto) % (1.0-10.0) Eosinophils (%) (Auto) % (0.0-3.0) Basophils (%) (Auto) % (0.0-2.0) Differential Total Cells Counted 100 Neutrophils % (Manual) 69 % (45-75) Lymphocytes % (Manual) 28 % (20-45) Monocytes % (Manual) 3 % (1-10) Eosinophils % (Manual) 0 % (0-3) Basophils % (Manual) 0 % (0-2) Band Neutrophils 0 % (0-8) Platelet Estimate Decreased Platelet Morphology Normal Hypochromasia 1+ Anisocytosis 1+ Ovalocytes Occasional Sodium Level 140 MMOL/L (136-145) Potassium Level 4.1 MMOL/L (3.5-5.1) Chloride Level 105 MMOL/L (98-107) Carbon Dioxide Level 26 MMOL/L (21-32) Anion Gap 9 mmol/L (5-15) Blood Urea Nitrogen 16 mg/dL (7-18) Creatinine 0.9 MG/DL (0.55-1.30) Estimat Glomerular Filtration Rate mL/min (>60) Glucose Level 97 MG/DL (74-106) Calcium Level 8.8 MG/DL (8.5-10.1) Total Bilirubin 0.4 MG/DL (0.2-1.0) Aspartate Amino Transf (AST/SGOT) 22 U/L (15-37) Alanine Aminotransferase (ALT/SGPT) 19 U/L (12-78) Alkaline Phosphatase 61 U/L (46-116) Total Protein 7.5 G/DL (6.4-8.2) Albumin 3.3 G/DL (3.4-5.0) Globulin 4.2 g/dL Albumin/Globulin Ratio 0.8 (1.0-2.7) Stool Occult Blood Negative (NEGATIVE) Height (Feet): 5 Height (Inches): 0.00 Weight (Pounds): 100 Objective Physical Exam Vitals: reviewed General: no apparent distress, alert, GCS 15 Head: atraumatic HEENT: normal inspection, full range of motion, supple, no bony tend Resp: normal inspection, lungs clear, normal breath sounds Cardiovascular: regular rate, rhythm, no edema GI: normal inspection, normal bowel sounds, non tender, soft, no guarding, no hernia : no CVA tenderness Psych: normal inspection, judgement/insight normal, mood/affect normal Asa Young MD Aug 21, 2019 06:24
--- NOTE | 2019-08-21 07:29 | NUR ---
HAND-OFF: Report given to Sanjiv WILSON.
--- NOTE | 2019-08-21 07:30 | NUR ---
NURSE NOTES: Received patient in bed. Awake A/O x4. Patient is on room air, respirations unlabored. Patient denies pain at this time. Discoloration of the bottom lip noted. IV in the Left AC noted with dry dressing. 1/2 side rails up.
[2019-08-21 08:00] VITALS: BP 124/67
[2019-08-21 08:41] VITALS: BP 124/67
[2019-08-21] MEDS: Losartan 50mg tab ORAL SCH (08:41)
[2019-08-21] MEDS: Imdur 30mg tab ORAL SCH (08:41)
[2019-08-21] MEDS: hydroCHLOROthiazide 12.5mg TAB ORAL SCH (08:41)
--- NOTE | 2019-08-21 11:11 | NUR ---
NURSE NOTES: Patient sent home. Son and daughter with the patient. Belongings list verified, IV site removed, ID band removed. Patient is stable.
--- NOTE | 2019-08-21 15:58 | General Progress Note ---
Assessment/Plan Status: progressing Assessment/Plan: Assessment - Pancytopenia - blue discoloration in mouth - h/o colon polyps - Anemia, OB (-) Recommendations - push po - Heme Onc f/u - follow labs - consider ENT eval Subjective Allergies: Coded Allergies: No Known Allergies (Unverified , 08/17/19) Subjective Above noted (+) BM --> OB (-) Objective Last 24 Hour Vital Signs Date Time Temp Pulse Resp B/P (MAP) Pulse Ox O2 Delivery O2 Flow Rate FiO2 08/21/19 09:00 Room Air 08/21/19 08:41 124/67 08/21/19 08:41 124/67 08/21/19 08:00 98.1 75 20 124/67 (86) 100 08/21/19 04:00 97.9 69 18 115/63 (80) 97 08/21/19 00:00 97.7 66 18 117/67 (84) 98 08/20/19 20:08 Room Air 08/20/19 20:00 97.6 64 18 114/60 (78) 99 08/20/19 16:00 97.9 78 18 118/69 (85) 98 Intake and Output 08/20/19 08/21/19 19:00 07:00 Intake Total 800 ml Balance 800 ml Intake Oral 800 ml # Voids 5 2 Height (Feet): 5 Height (Inches): 0.00 Weight (Pounds): 100 Objective WDWN NCAT, (+) blue patches on buccal and tongue mucosa supple CTA RR abd soft NT ND no edema Live Varghese MD Aug 21, 2019 15:58
--- NOTE | 2019-08-23 11:22 | Discharge Summary ---
Discharge Summary Discharge Summary _ DATE OF ADMISSION: 08/17/2019 DATE OF DISCHARGE: 08/21/2019 DISCHARGED BY: Dr. Ryley Watters CONSULTANTS: Dr. Live Li BRIEF HOSPITAL COURSE: The patient is an 79-year-old female who presented to ED due to increased generalized weakness. She was recently seen by PCP and was noted to be pancytopenic. She had discoloration of the tongue for the past 3 to 4 months. She had a prior colonoscopy that showed abnormal looking polyps. On evaluation at the ED, vital signs were stable. Blood work showed WBC 3.6. Hemoglobin 9, hematocrit 27. Electrolytes were normal. Liver and kidney function normal. CT of the chest, abdomen and pelvis did not show any acute obstruction or appendicitis. Patient was then admitted for evaluation of pancytopenia. Etiology of pancytopenia unknown. There was no recent chemotherapy. Bone marrow biopsy was ordered. Flow cytometry analysis was negative. HIV and hepatitis panel negative. CEA was normal. Stool OB was negative. Patient had discoloration in the tongue. Recommend ENT or dermatology evaluation as outpatient. Patient was eventually discharged home. FINAL DIAGNOSES: Pancytopenia Anemia of chronic disease advanced coronary artery calcifications Cholelithiasis Degenerative lumbar spine and osteopenia DISPOSITION: Patient was discharged home. DISCHARGE MEDICATIONS: Refer to Discharge Medication List. DISCHARGE INSTRUCTIONS: Follow-up in a week. I have been assigned to complete a discharge summary on this account, I was not involved with the patient's management.--ALISON Herbert Jacqueline Robles NP Aug 23, 2019 11:22
== END 2019-08-21 11:11 | disposition home or self-care (01) | DRG 809 ==
LOC: EMR 16:05 → 4E 17:24 → EDBEDREQ 21:02 → 4E 08-19 09:48
PROC: 07DR3ZX Extraction of Iliac Bone Marrow, Percutaneous Approach, Diagnostic (ICD-10-PCS; principal; 2019-08-18)
DX: D61.818 Other pancytopenia (principal); M48.56XA Collapsed vertebra, not elsewhere classified, lumbar region, initial encounter for fracture; I25.10 Atherosclerotic heart disease of native coronary artery without angina pectoris; I25.84 Coronary atherosclerosis due to calcified coronary lesion; K80.20 Calculus of gallbladder without cholecystitis without obstruction; M85.88 Other specified disorders of bone density and structure, other site; K57.30 Diverticulosis of large intestine without perforation or abscess without bleeding; D63.8 Anemia in other chronic diseases classified elsewhere; M51.36 Other intervertebral disc degeneration, lumbar region; M85.80 Other specified disorders of bone density and structure, unspecified site; E03.9 Hypothyroidism, unspecified; K57.90 Diverticulosis of intestine, part unspecified, without perforation or abscess without bleeding; Z79.02 Long term (current) use of antithrombotics/antiplatelets; R10.9 Unspecified abdominal pain
CPT/HCPCS: 36415; 71260; 74177; 80053; 82270; 82378; 84484; 85007; 85025; 85610; 85730; 86703; 86705; 86709; 86803; 86850; 86900; 86901; 87340; 93005; 99285